=== PATIENT | male | born 1985 | race African-American/Black ===

== ENCOUNTER 2018-03-24 13:15 | Emergency (ER) | payer SELFPAY ==
[~2018-03-24] VITALS: Ht 172.7 cm; Wt 79.0 kg
[2018-03-24] MEDS ORDERED: KETOROLAC 60MG/2ML VIAL IM ONE (15:30)
[2018-03-24] MEDS ORDERED: BACITRACIN ZINC OINT UDPKT TOP ONE (16:00)
[2018-03-24 16:37] VITALS: BP 140/90
== END 2018-03-24 16:38 | disposition home or self-care (01) ==
LOC: ER 13:33
DX: S81.811A Laceration without foreign body, right lower leg, initial encounter (principal); S80.11XA Contusion of right lower leg, initial encounter; M79.10 Myalgia, unspecified site; V43.52XA Car driver injured in collision with other type car in traffic accident, initial encounter; Y93.89 Activity, other specified; Y92.411 Interstate highway as the place of occurrence of the external cause
CPT/HCPCS: 73590; 96372; 99283; J1885